=== PATIENT | female | born 1960 | race Caucasian/White ===

== ENCOUNTER → 2018-09-03 | Outpatient (CLI) | payer MEDICARE ==
[2014-04-10 08:29] VITALS: BP 128/99
[~2018-09-03] MED LIST: ASCO500T2 PO; CYCL10TA2 PO; OXCA150T3 PO; OXYC1TAB22 PO; OXYC20TA34 PO; RANI150C PO; SERT100T PO; SPIR25TA5 PO; TRIA1TAB5 PO
--- NOTE | 2018-09-06 16:07 | PATHOLOGY ---
[facility] Accession Number: [id number] . 01 Material submitted: . RIGHT DISTAL PHALANX . 01 Clinical history: . Evaluate for osteomyelitis, status post open fracture, distal phalanges . 02 Diagnosis: Bone, right distal phalanx, foot, biopsy: - Scant portion of bone with no evidence of acute osteomyelitis. - Tiny portion of unremarkable fibroadipose tissue. (SKM:pit 09/06/2018) QTP/09/06/2018 . 02 Electronically signed: . Rene Lawrence MD, Pathologist NPI- [id number] . 01 Gross description: . The specimen is received in formalin, labeled "Gray, Fátima, bone hallux right", is an irregular fragment of dark brown bone measuring 0.6 x 0.3 x 0.3 cm, entirely submitted in A1 after decalcification. ([facility]; 09/04/2018) SHS/SHS . 02 Pathologist provided ICD-10: S92.531A . 02 CPT . 286758 Specimen Comment: A courtesy copy of this report has been sent to Specimen Comment: [phone], . Specimen Comment: Report sent to / DR VALLECILLO Performed at: 01 [facility] [address], [place], [place] [id number] MD Jamaal Damian MD Phone: [phone] Performed at: 02 [facility] [address] [place], [place] [id number] MD Eliazar Nava MD Phone: [phone]
== END | disposition home or self-care (01) ==
LOC: SPEC 16:02
PROVIDERS: ATTEND Podiatrist Foot & Ankle Surgery
DX: S62.521D Displaced fracture of distal phalanx of right thumb, subsequent encounter for fracture with routine healing (principal); X58.XXXD Exposure to other specified factors, subsequent encounter
CPT/HCPCS: 87071; 87075

== ENCOUNTER → 2020-01-02 | Outpatient (CLI) | payer MEDICARE ==
[2014-04-10 08:29] VITALS: BP 128/99
[~2020-01-02] MED LIST changes: -ASCO500T2 PO; +ASCO500T4 PO; +GADOTERATE 5 MMOL/10ML VIAL. IVP ONE; +IOHEXOL 300 MG/ML 50 ML VIAL. IJ ONE
--- NOTE | 2020-01-02 11:59 | RAD ---
STUDY: MRI arthrogram of the right shoulder INDICATION: Worsening right shoulder pain. COMPARISON: Right shoulder radiographs 10/16/2019. TECHNIQUE: Multiplanar MR imaging of the right shoulder performed after the intra-articular injection of contrast material. The injection portion of the procedure is detailed in a separate report. FINDINGS: Despite repeat imaging attempts the study is degraded by motion artifact particularly involving the sagittal T2 sequence. AC joint: Relatively mild arthrosis but there is gadolinium-containing contrast within the joint space. Gadolinium-containing fluid distends the subacromial subdeltoid bursa as well. Rotator cuff: Extensive full-thickness tearing of both the supraspinatus and infraspinatus. A few thinned far anterior supraspinatus fibers may remain attached to the footprint. No intact infraspinatus fibers are visualized noting motion degradation. Retraction of torn supraspinatus tendon just lateral to the glenohumeral joint. The infraspinatus tendon stump is retracted to the level of the glenohumeral joint. The teres minor is intact. Tendinosis and high-grade partial tearing of the subscapularis. Teres minor and subscapularis muscular bulk and signal is relatively normal. There is mild atrophy and fatty infiltration of the infraspinatus more so than the supraspinatus and there is denervation edema of both of these muscle bellies, image 1 series 10. Labrum: Mostly torn though some portions of the labrum such as anterior/inferior remain visualized. Long head biceps tendon: Tendinosis and partial tearing particularly at the groove entrance. Cartilage: There is presumably some chondral loss at the superior humeral head with assessment limited due to motion. Bones: The humeral head is decentralized posteriorly relative to the glenoid, image 12 series 4. High riding humeral head and the undersurface of the acromion is thinned. No acute fracture. Miscellaneous: The posterior joint space is patulous and the posterior capsule not well delineated. Fluid with contrast extends downward past the joint space and along the anterior axilla/chest wall either from a split injection or on account capsular deficiency. Impression: 1. Extensive full thickness tearing of the supraspinatus and infraspinatus with no visualized intact infraspinatus fibers and only a few possible severely thinned anterior supraspinatus fibers remaining attached to the footprint. Variable degree of torn tendon retraction involving the infraspinatus more so than the supraspinatus and extending displaced as far medial as the glenohumeral joint. Mild fatty infiltration and atrophy of the infraspinatus more so than the supraspinatus and there is mild edema of these muscle bellies typical of denervation. The teres minor is intact. Tendinosis and high-grade partial tearing of the subscapularis. 2. Partial tearing and tendinosis of the long head biceps tendon most notably at the groove entrance. Extensive tearing of the labrum. 3. Motion hinders assessment of the cartilage but there is likely a degree of chondral loss at the superior humeral head. 4. Posterior decentralization of the humeral head in keeping with instability. Correspondingly the posterior joint space is patulous and the posterior capsule itself not well delineated. Electronically signed by: BRIAN ALBARRAN MD (01/02/2020 11:56 AM) [id number]
--- NOTE | 2020-01-02 12:58 | RAD ---
EXAM: Fluoroscopically guided right shoulder injection for MR arthrography. HISTORY: Right shoulder pain. TECHNIQUE: The risks and benefits of the procedure were discussed with the patient and written and verbal consent were obtained. A time out procedure was performed. Fluoroscopic imaging of the right shoulder was performed. The overlying skin was sterilely prepped and infiltrated with 1% lidocaine for local anesthesia. A 22-gauge spinal needle was then advanced into the joint space under fluoroscopic guidance. Intra-articular positioning positioning was confirmed with a small injection of iodinated contrast. 12 mL of 1:200 dilution gadolinium (Dotarem) contrast with saline and iodinated contrast was injected under fluoroscopic control. Instrumentation was withdrawn and a sterile dressing placed. There were no immediate complications. The patient was transferred to the MR suite for additional imaging. Fluoroscopy time 0.6 minutes. 5 images were obtained. Refer to the MR report for additional detail. IMPRESSION: Successful fluoroscopically guided right shoulder injection for MR arthrography. Please refer to the separate MR report for additional detail. Electronically signed by: Marcelle Tinoco MD (01/02/2020 12:55 PM) [id number]
== END ==
LOC: RAD 08:00
PROVIDERS: ATTEND Orthopaedic Surgery
DX: M75.121 Complete rotator cuff tear or rupture of right shoulder, not specified as traumatic (principal); M25.511 Pain in right shoulder
CPT/HCPCS: 23350; 73222; 77002; A9575; Q9967; 73040